=== PATIENT | female | born 1935 | race Caucasian/White ===

== ENCOUNTER 2017-09-15 18:41 | Emergency (ER) | payer MEDICARE ==
[~2017-09-15] VITALS: Ht 157.5 cm; Wt 95.0 kg
[~2017-09-15 18:41] MED LIST: ADVAI500I PO; ALBU1AER INH; AMLO5 PO; ASPI81TA21 PO; FLEC50TA PO; FOLI1TAB PO; HYDR-3533 PO; METH2.5 PO; MONT10TA2 PO; TAB-TAB PO; VITA20003 PO
[2017-09-15 18:45] VITALS: BP 192/86; PULSE 90; RESP 20; TEMP 98.9; O2SAT 96
[2017-09-15] MEDS ORDERED: PROPARACAINE HCL 0.5% OPHT SOLN 15 ML BTL EACH EYE ONE (20:30)
--- NOTE | 2017-09-15 20:37 | PD ---
HPI Chief Complaint: Eye Problems/Injury Time Seen by Provider: 20:16 Travel History International Travel<30 days: No Contact w/Intl Traveler<30days: No Traveled to known affect area: No History of Present Illness HPI The patient is an 81 year old female who presents to the [facility] emergency department with a history of intermittent pain that she reports is present around her right eye. The patient reports that the pain is been present intermittently for the last year. She reports that she has addressed this with her eye doctor, . She reports that she was diagnosed with something called "arthritica." She reports that she uses Restasis eyedrops and refresh. She reports that intermittently she will get a subconjunctival hemorrhage of that right eye. She reports that this afternoon she noticed that she developed another subconjunctival hemorrhage. She denies any trauma or rubbing of the eye. She denies any vision changes associated with this. She denies any pain in the eye with eye movement. She reports that the pain is around the eye. She denies having any nausea or vomiting. On review of systems otherwise, the patient denies having any known recent fevers, eye tearing, cough or congestion, neck pain, chest pain, worsening shortness of breath, abdominal pain, vomiting, diarrhea, urinary symptoms, or neurologic symptoms. [facility] Past Medical History Narrative Medical The patient's past medical history is significant for sleep apnea, COPD on 2 L nasal cannula O2 nightly, fibromyalgia, rheumatoid arthritis, osteoarthritis, atrial fibrillation, hypertension. Arthritis: Yes Atrial Fibrillation: Yes Heart Rhythm Problems: Yes (TACHY/SWETA SYNDROME WITH REENTRY ATRIAL TACH) Cardiovascular Problems: Yes (A-FIB, HTN) High Cholesterol: Yes COPD: Yes Diminished Hearing: No Fibromyalgia: Yes Genitourinary: No Headaches: No Hiatal Hernia: Yes Hypertension: Yes Musculoskeletal: Yes Neurologic: Yes Reproductive: Yes (hysterectomy) Respiratory: Yes (COPD) Migraines: Yes Shingles: Yes Sleep Apnea: Yes ?: Not Menopausal: Yes Past Surgical History Narrative Surgical The patient's past surgical history is significant for bilateral cataract surgery, cholecystectomy, hysterectomy. Abdominal Surgery: Yes (hysterectomy,gallbladder) Cholecystectomy: Yes (93) Eye Surgery: Yes (cataracts) Hysterectomy: Yes Social History Alcohol Use: No Tobacco Use: No Substance Use: No Allergies-Medications (Allergen,Severity, Reaction): Coded Allergies: adhesive tape (Verified Allergy, Mild, 09/15/17) contact dermatitis Latex, Natural Rubber (Verified Adverse Reaction, Mild, 09/15/17) contact dermatitis Reported Meds & Prescriptions Reported Meds & Active Scripts Active Lortab 5 mg/325 mg (Hydrocodone/Acetaminophen 5 mg/325 mg) 1 Tab 1 Tab PO Q6H PRN Reported Rheumatrex (Methotrexate) 2.5 Mg Tab 15 Mg PO WEEKLY Singulair (Montelukast Sodium) 10 Mg Tab 10 Mg PO DAILY PRN Vitamin D (Cholecalciferol) 2,000 Unit Tab 2,000 Unit PO DAILY Flecainide Acetate 50 Mg Tab 50 Mg PO Q12 Aspir-Low (Aspirin) 81 Mg Tab 162 Mg PO DAILY Norvasc (Amlodipine Besylate) 5 Mg Tab 5 Mg PO DAILY Proair Hfa (Albuterol Sulfate) 8.5 Gm Aero 2 Puff INH Q4H PRN * SHAKE WELL BEFORE USE * Advair Diskus 500/50 (Salmeterol Xinafoate/Fluticasone) Fluticasone/Salmeterol 500/50 Inh 1 Puff PO BID Multivitamin (Multivitamins) 1 Tab Tab 1 Tab PO DAILY Folate (Folic Acid) 1 Mg Tab 1 Mg PO DAILY Review of Systems Except as stated in HPI: all other systems reviewed are Neg General / Constitutional: No: Fever Eyes: Positive: Redness, No: Drainage, Visual changes HENT: No: Headaches Cardiovascular: No: Chest Pain or Discomfort Respiratory: No: Shortness of Breath Gastrointestinal: No: Nausea, Vomiting, Diarrhea, Abdominal Pain Genitourinary: No: Dysuria Musculoskeletal: No: Pain Skin: No Rash Neurologic: Positive: Headache, No: Weakness, Focal Abnormalities, Change in Mentation, Slurred Speech, Sensory Disturbance Psychiatric: No: Depression Endocrine: No: Polydipsia Hematologic/Lymphatic: No: Easy Bruising Physical Exam Narrative General: The patient is a well-developed well-nourished female in no acute distress. Head and Neck exam: Head is normocephalic atraumatic. No tenderness on palpation overlying the right christianity. Eyes: EOMI, pupils are equal round and reactive to light. The patient on examination of the right eye is noted a temporal subconjunctival hemorrhage noted. The patient had proparacaine ophthalmic eyedrop instilled in each eye. The patient's eye pressure in each eye was checked. The patient's right eye pressure is 17, left eye pressure 18. The patient had fluorescein placed in each eye and her eyes were examined with a black light. There is no ulceration , abrasion, or dendritic formation. Nose: Midline septum with pink mucous membranes Mouth: Dentition unremarkable. Moist mucus membranes. Posterior oropharynx is not erythematous. No tonsillar hypertrophy. Uvula midline. Airway patent. Neck: No palpable lymphadenopathy. No nuchal rigidity. No thyromegaly. Cardiovascular: Regular rate and rhythm without murmurs, gallops, or rubs. No pulse deficit to the extremities on simultaneous auscultation and palpation of her radial artery. Lungs: Clear to auscultation bilaterally. No wheezes, rhonchi, or rales. Abdomen: Soft, without tenderness to palpation in all 4 quadrants of the abdomen. No guarding, rebound, or rigidity. Normal bowel sounds are audible. No tenderness on palpation of McBurney's point. Extremities: No clubbing, cyanosis, or edema. 2+ pulses in all 4 extremities. No calf tenderness on palpation. Back: No spinous process tenderness to palpation. No costovertebral angle tenderness to palpation. Neurologic Exam: Grossly nonfocal. Skin Exam: No rash noted. Intact skin that is warm and dry. Eye 1 - Redness (subconjunctival hemorrhage) Data Data Last Documented VS Vital Signs Date Time Temp Pulse Resp B/P (MAP) Pulse Ox O2 Delivery O2 Flow Rate FiO2 09/15/17 22:15 73 20 181/73 (109) 98 Room Air 09/15/17 18:45 98.9 Orders Orders Proparacaine 0.5% Opth Soln (Alcaine 0.5 (09/15/17 20:30) Complete Blood Count With Diff (09/15/17 20:28) Comprehensive Metabolic Panel (09/15/17 20:28) Prothrombin Time / Inr (Pt) (09/15/17 20:28) Act Partial Throm Time (Ptt) (09/15/17 20:28) Westergren Sedimentation Rate (09/15/17 20:28) Iv Access Insert/Monitor (09/15/17 20:28) Ecg Monitoring (09/15/17 20:28) Oximetry (09/15/17 20:28) Labs Laboratory Tests Test 09/15/17 22:01 White Blood Count 10.8 TH/MM3 Red Blood Count 3.74 MIL/MM3 Hemoglobin 12.2 GM/DL Hematocrit 36.7 % Mean Corpuscular Volume 98.0 FL Mean Corpuscular Hemoglobin 32.7 PG Mean Corpuscular Hemoglobin Concent 33.4 % Red Cell Distribution Width 14.6 % Platelet Count 293 TH/MM3 Mean Platelet Volume 6.1 FL Neutrophils (%) (Auto) 77.7 % Lymphocytes (%) (Auto) 11.5 % Monocytes (%) (Auto) 7.5 % Eosinophils (%) (Auto) 2.3 % Basophils (%) (Auto) 1.0 % Neutrophils # (Auto) 8.4 TH/MM3 Lymphocytes # (Auto) 1.2 TH/MM3 Monocytes # (Auto) 0.8 TH/MM3 Eosinophils # (Auto) 0.2 TH/MM3 Basophils # (Auto) 0.1 TH/MM3 CBC Comment DIFF FINAL Differential Comment Erythrocyte Sedimentation Rate 40 mm/hr Prothrombin Time 10.1 SEC Prothromb Time International Ratio 1.0 RATIO Activated Partial Thromboplast Time 25.2 SEC Blood Urea Nitrogen 15 MG/DL Creatinine 0.96 MG/DL Random Glucose 102 MG/DL Total Protein 7.0 GM/DL Albumin 3.1 GM/DL Calcium Level 8.3 MG/DL Alkaline Phosphatase 95 U/L Aspartate Amino Transf (AST/SGOT) 18 U/L Alanine Aminotransferase (ALT/SGPT) 20 U/L Total Bilirubin 0.4 MG/DL Sodium Level 144 MEQ/L Potassium Level 4.3 MEQ/L Chloride Level 110 MEQ/L Carbon Dioxide Level 27.7 MEQ/L Anion Gap 6 MEQ/L Estimat Glomerular Filtration Rate 56 ML/MIN MDM Medical Decision Making Medical Screen Exam Complete: Yes Emergency Medical Condition: Yes Medical Record Reviewed: Yes Differential Diagnosis Subconjunctival hemorrhage, versus corneal abrasion, versus ulceration, versus temporal arteritis, versus conjunctivitis Narrative Course During the course of the patient's emergency department visit, the patient's history, examination, and differential diagnosis were reviewed with the patient. The patient was placed on a floral artist with oximetry and frequent blood pressure monitoring. The patient had IV access obtained and blood work sent for analysis. Visual acuity will be assessed. The patient's visual acuity is 20/30 in the right, 20/25 in the left, bilateral vision is 20/25. The patient's laboratory studies were reviewed and remarkable for a white count of 10.8, hemoglobin 12.2, platelets 293 with 77.7 neutrophils, sedimentation rate is 40, decreasing likelihood of temporal arteritis, the patient's elevated sedimentation rate is likely related to her history of rheumatoid arthritis. CMP is remarkable for a chloride of 110, GFR 56, calcium 8.3, albumin 3.1. PT PTT within normal limits. The patient's examination is consistent with a subconjunctival hemorrhage. The patient has no coagulopathy that appears to have contributed to this. No other acute abnormality. The patient is instructed to follow-up with her eye doctor regarding this. In the meantime, she is instructed to continue on her usual eyedrops for dry eyes and avoid rubbing her eyes. The patient is resting comfortably and feels better, is alert and in no distress. The patient's results and examination findings were discussed with the patient. The repeat examination is unremarkable and benign. The history, exam, diagnostic testing, and current condition do not suggest any significant pathology to warrant further testing, continued ED treatment, admission, or surgical evaluation at this point. The vital signs have been stable. The patient does not have uncontrollable pain, intractable vomiting, or other significant symptoms. The patient's condition is stable and appropriate for discharge. The patient will pursue further outpatient evaluation with a primary care physician or other designated or consulting physician as indicated in the discharge instructions. The patient is instructed to report back to the emergency department immediately for reexamination in the mean time if he/ she develops any new or worsening signs or symptoms. The patient expressed understanding and was agreeable with this plan. Diagnosis Primary Impression: NATALIE (subconjunctival hemorrhage) Qualified Codes: H11.31 - Conjunctival hemorrhage, right eye Referrals: [facility] Helper 1 day Additional Instructions: Avoid rubbing her eye. Follow-up with your traffic administrator for reexamination in the next 1-2 days. Disposition: 01 DISCHARGE HOME Condition: Stable Obdulia Edwards MD September 15, 2017 20:37
[2017-09-15 22:15] VITALS: BP 181/73; PULSE 73; RESP 20; O2SAT 98
[2017-09-15 22:31] LABS: AUTOMATED NEUTROPHIL # 8.4 TH/MM3 (1.8-7.7); BASOPHIL # 0.1 TH/MM3 (0-0.2); EOSINOPHIL # 0.2 TH/MM3 (0-0.4); EOSINOPHIL % 2.3 % (0.0-4.0); HEMATOCRIT 36.7 % (35.0-46.0); HEMOGLOBIN 12.2 GM/DL (11.6-15.3); LYMPH % 11.5 % (9.0-44.0); LYMPHOCYTE # 1.2 TH/MM3 (1.0-4.8); MEAN CORPUSCULAR HEMOGLOBIN 32.7 PG (27.0-34.0); MEAN CORPUSCULAR HGB CONC 33.4 % (32.0-36.0); MEAN PLATELET VOLUME 6.1 FL (7.0-11.0); MONO % 7.5 % (0.0-8.0); MONOCYTE # 0.8 TH/MM3 (0-0.9); NEUT % 77.7 % (16.0-70.0); PLATELET COUNT 293 TH/MM3 (150-450); RED BLOOD COUNT 3.74 MIL/MM3 (4.00-5.30); RED CELL DISTRIBUTION WIDTH 14.6 % (11.6-17.2); WHITE BLOOD COUNT 10.8 TH/MM3 (4.0-11.0)
[2017-09-15 22:43] LABS: ALBUMIN 3.1 GM/DL (3.4-5.0); ALT (GPT) 20 U/L (10-53); AST (GOT) 18 U/L (15-37); BICARBONATE 27.7 MEQ/L (21.0-32.0); BLOOD UREA NITROGEN 15 MG/DL (7-18); CALCIUM 8.3 MG/DL (8.5-10.1); CHLORIDE 110 MEQ/L (98-107); CREATININE 0.96 MG/DL (0.50-1.00); GLOMERULAR FILTRATION RATE 56 ML/MIN (>89); GLUCOSE,RANDOM 102 MG/DL (74-106); SODIUM (NA) 144 MEQ/L (136-145)
[2017-09-15 22:45] LABS: ALKALINE PHOSPHATASE 95 U/L (45-117); TOTAL BILIRUBIN ADULT 0.4 MG/DL (0.2-1.0)
[2017-09-15 23:11] LABS: PROTHROMBIN TIME - PATIENT 10.1 SEC (9.8-11.6)
[2017-09-16] VITALS: BP 152/78
== END 2017-09-16 00:08 | disposition home or self-care (01) ==
LOC: NEPE 18:41
DX: H11.31 Conjunctival hemorrhage, right eye (principal); J44.9 Chronic obstructive pulmonary disease, unspecified; I10 Essential (primary) hypertension; M06.9 Rheumatoid arthritis, unspecified
CPT/HCPCS: 80053; 85025; 85610; 85652; 85730; 99283